=== PATIENT | male | born 1950 | race Caucasian/White ===

== ENCOUNTER 2016-04-23 09:34 | Emergency (ER) | payer OTHER ==
[2016-04-23] MEDS ORDERED: ASPIRIN 81 MG CHEW TAB ONE (09:42)
== END 2016-04-23 14:31 | disposition home or self-care (01) ==
LOC: ER 09:34
CPT/HCPCS: 36415; 71010; 80053; 82550; 83735; 84439; 84443; 84484; 85025; 85610; 85730; 93005